=== PATIENT | female | born 1995 | race Caucasian/White ===

== ENCOUNTER → 2018-11-11 | Outpatient (REF) | payer OTHER ==
[2018-11-11 15:34] LABS: INFLUENZA A AMPLIFICATION POSITIVE (NEGATIVE); INFLUENZA B AMPLIFICATION NEGATIVE (NEGATIVE)
== END ==
LOC: M LAB REF 13:48
PROVIDERS: ATTEND Physician Assistant Medical
DX: J11.1 Influenza due to unidentified influenza virus with other respiratory manifestations (principal)

== ENCOUNTER → 2019-07-23 | Outpatient (REF) | payer OTHER | LOC: M LAB REF 12:00 | PROVIDERS: ATTEND Physician Assistant Medical | DX: R50.9 Fever, unspecified (principal); R10.84 Generalized abdominal pain; R05 Cough ==

== ENCOUNTER → 2021-11-01 | Outpatient (REF) | payer OTHER | LOC: M LAB REF 14:25 | PROVIDERS: ATTEND Physician Assistant | DX: R05.9 Cough, unspecified (principal) ==

== ENCOUNTER → 2022-06-05 | Outpatient (REF) | payer OTHER | LOC: M LAB REF 16:07 | PROVIDERS: ATTEND Physician Assistant | DX: B34.9 Viral infection, unspecified (principal) ==

== ENCOUNTER → 2022-10-07 | Outpatient (CLI) | payer OTHER ==
[2022-10-07 17:34] LABS: HEMATOCRIT 39.2 % (36.0-47.0); HEMOGLOBIN 13.1 g/dl (12.0-15.5); MEAN CORPUSCULAR HEMOGLOBIN 30.8 pg (27.0-33.0); MEAN CORPUSCULAR HGB CONC 33.4 g/dl (32.0-36.5); MEAN CORPUSCULAR VOLUME 92.2 fl (80.0-96.0); PLATELET COUNT, AUTOMATED 279 10^3/uL (150-450); RED BLOOD COUNT 4.25 10^6/uL (4.00-5.40)
[2022-10-07 18:20] LABS: HIV 1&2 SCREEN CENTAUR NEGATIVE (NEGATIVE)
[2022-10-07 19:51] LABS: GC DNA AMPLIFICATION NEGATIVE (NEGATIVE)
== END ==
LOC: M PLALAB 14:27
PROVIDERS: ATTEND Advanced Practice Midwife
DX: Z34.81 Encounter for supervision of other normal pregnancy, first trimester (principal)

== ENCOUNTER → 2022-11-04 | Outpatient (CLI) | payer OTHER | LOC: M PLALAB 09:56 | PROVIDERS: ATTEND Specialist | DX: Z34.80 Encounter for supervision of other normal pregnancy, unspecified trimester (principal) ==

== ENCOUNTER → 2023-01-07 | Outpatient (CLI) | payer OTHER | LOC: M WHC 12:59 | PROVIDERS: ATTEND Obstetrics & Gynecology | DX: Z34.92 Encounter for supervision of normal pregnancy, unspecified, second trimester (principal) ==

== ENCOUNTER → 2023-03-04 | Outpatient (CLI) | payer OTHER ==
[2023-03-04 13:38] LABS: HEMATOCRIT 34.9 % (36.0-47.0); HEMOGLOBIN 11.4 g/dl (12.0-15.5); MEAN CORPUSCULAR HEMOGLOBIN 31.1 pg (27.0-33.0); MEAN CORPUSCULAR HGB CONC 32.7 g/dl (32.0-36.5); MEAN CORPUSCULAR VOLUME 95.4 fl (80.0-96.0); PLATELET COUNT, AUTOMATED 200 10^3/uL (150-450); RED BLOOD COUNT 3.66 10^6/uL (4.00-5.40); WHITE BLOOD COUNT 23.1 10^3/uL (4.0-10.0)
[2023-03-04 15:01] LABS: GC DNA AMPLIFICATION NEGATIVE (NEGATIVE)
== END ==
LOC: M PLALAB 09:37
PROVIDERS: ATTEND Obstetrics & Gynecology
DX: Z34.93 Encounter for supervision of normal pregnancy, unspecified, third trimester (principal)

== ENCOUNTER → 2023-04-29 | Outpatient (REF) | payer OTHER | LOC: M SFHCWAGY 13:09 | PROVIDERS: ATTEND Advanced Practice Midwife | DX: Z34.83 Encounter for supervision of other normal pregnancy, third trimester (principal) ==

== ENCOUNTER 2023-05-15 21:13 | Inpatient (IN) | payer OTHER ==
[~2023-05-15] VITALS: Ht 154.9 cm; Wt 84.3 kg
[2023-05-15] VITALS (18 sets, daily range): BP systolic 120–202; BP diastolic 63–107
[2023-05-15] MEDS ORDERED: OMEP10CASR PO (21:25)
[2023-05-15] MEDS ORDERED: LACTATED RINGER'S 1000 ML IV STA (21:37)
[2023-05-15] MEDS ORDERED: PENICILLIN G POTASSIUM 5 MU IV 5 MU in D5W MINI-BAG PLUS 100 ML IV STA (21:37)
[2023-05-15] MEDS ORDERED: CARBOPROST TROMETHAMINE 250 MCG/ML AMP IM PRN (21:40)
[2023-05-15] MEDS ORDERED: TRANEXAMIC ACID INJection 1,000 MG in NS 100 ML IV PRN (21:40)
[2023-05-15] MEDS ORDERED: LR 1,000 ML IV SCH (21:40)
[2023-05-15] MEDS ORDERED: OXYTOCIN DRIP 30 UNITS in IV 1 EA IV PRN ×4 (21:40)
[2023-05-15] MEDS ORDERED: HOME MED LIST COMPLETE! XX SCH (21:40)
[2023-05-15] MEDS ORDERED: METHYLERGONOVINE MALEATE 0.2MG/ML 1ML VIAL IM PRN (21:40)
[2023-05-15 22:20] LABS: HEMATOCRIT 35.2 % (36.0-47.0); HEMOGLOBIN 11.6 g/dl (12.0-15.5); MEAN CORPUSCULAR HEMOGLOBIN 29.4 pg (27.0-33.0); MEAN CORPUSCULAR VOLUME 89.3 fl (80.0-96.0); PLATELET COUNT, AUTOMATED 131 10^3/uL (150-450); RED BLOOD COUNT 3.94 10^6/uL (4.00-5.40); WHITE BLOOD COUNT 15.7 10^3/uL (4.0-10.0)
[2023-05-15] MEDS ORDERED: ePHEDrine SULFATE 25 MG/5 ML(5MG/ML) SYRINGE IVP PRN (22:35)
[2023-05-15] MEDS ORDERED: diphenhydrAMINE 50MG/ML VIAL IV PRN (22:35)
[2023-05-15] MEDS ORDERED: EPIDURAL/PCA KEYS XX PRN (22:35)
[2023-05-15] MEDS ORDERED: FENTANYL/ROPIVACAINE/NACL BAG 100 ML EPIDURAL SCH (22:35)
[2023-05-15] MEDS ORDERED: LR 500 ML IV PRN (22:35)
[2023-05-15] MEDS ORDERED: NALOXONE INJ 0.4MG/1ML VIAL IV PRN (22:35)
[2023-05-15] MEDS ORDERED: ONDANSETRON 4MG 2ML VIAL IV PRN (22:35)
[2023-05-16] VITALS (36 sets, daily range): BP systolic 127–209; BP diastolic 66–114; O2SAT 95–98
[2023-05-16] MEDS ORDERED: OMEPRAZOLE 20MG CAP PO SCH (01:30)
[2023-05-16] MEDS ORDERED: PEN G POT 3,000,000 UNIT/50 ML 3,000,000 UNIT in IV 1 EA IV SCH (02:00)
[2023-05-16] MEDS ORDERED: DIBUCAINE 1% OINTMENT 30GM TOP PRN (03:45)
[2023-05-16] MEDS ORDERED: METHYLERGONOVINE MALEATE 0.2 MG TAB PO PRN (03:45)
[2023-05-16] MEDS ORDERED: DOCUSATE SODIUM 100MG CAPSULE PO PRN (03:45)
[2023-05-16] MEDS ORDERED: ACETAMINOPHEN 500 MG TAB PO PRN (03:45)
[2023-05-16] MEDS ORDERED: RHOGAM 300MCG (1500IU) INJ IM SCH (03:45)
[2023-05-16] MEDS: NIFEdipine 30MG XL TAB PO SCH (06:47)
[2023-05-16 07:19] LABS: HEMATOCRIT 31.6 % (36.0-47.0); HEMOGLOBIN 10.4 g/dl (12.0-15.5); MEAN CORPUSCULAR HEMOGLOBIN 29.9 pg (27.0-33.0); MEAN CORPUSCULAR HGB CONC 32.9 g/dl (32.0-36.5); MEAN CORPUSCULAR VOLUME 90.8 fl (80.0-96.0); PLATELET COUNT, AUTOMATED 114 10^3/uL (150-450); RED BLOOD COUNT 3.48 10^6/uL (4.00-5.40); WHITE BLOOD COUNT 24.3 10^3/uL (4.0-10.0)
[2023-05-16 07:42] LABS: LDH LACTATE DEHYDROGENASE 309 U/L (120-246)
[2023-05-16 07:43] LABS: ALT/SGPT 23 U/L (7.0-40); AST/SGOT 33 U/L (<34); BILIRUBIN,TOTAL 0.2 MG/DL (0.3-1.2); CREATININE FOR GFR 0.73 MG/DL (0.55-1.30); GLOMERULAR FILTRATION RATE > 60.0 (>60)
[2023-05-16] MEDS: PRENATAL VITAMINS CHEWABLE TABLET PO SCH (08:34)
[2023-05-16] MEDS ORDERED: LABETALOL 100MG/20ML VIAL IV STA ×2 (11:43→12:25)
[2023-05-16] MEDS ORDERED: LABETALOL 200 MG TAB PO STA (15:11)
[2023-05-16] MEDS: LABETALOL 200 MG TAB PO SCH (20:58)
[2023-05-17] VITALS (10 sets, daily range): BP systolic 141–178; BP diastolic 72–110; O2SAT 96–98
[2023-05-17] MEDS: IBUPROFEN 600MG TAB PO PRN ×3 (07:29→22:36)
[2023-05-17] MEDS: LABETALOL 200 MG TAB PO SCH (09:27)
[2023-05-17] MEDS: PRENATAL VITAMINS CHEWABLE TABLET PO SCH (09:28)
[2023-05-17] MEDS: NIFEdipine 30MG XL TAB PO SCH (09:28)
[2023-05-17] MEDS ORDERED: NIFEdipine 10 MG CAP PO ONE ×3 (14:30→21:00)
[2023-05-18] VITALS (7 sets, daily range): BP systolic 138–168; BP diastolic 75–104; O2SAT 96–98
[2023-05-18] MEDS: PRENATAL VITAMINS CHEWABLE TABLET PO SCH (08:11)
[2023-05-18] MEDS ORDERED: NIFEdipine 30MG XL TAB PO SCH (09:00)
[2023-05-18] MEDS ORDERED: MEASLES,MUMPS,RUBELLA VACCINE INJ (MMR-II) SC.IMMUN ONE (09:00)
[2023-05-18] MEDS: LABETALOL 100MG TAB PO SCH ×2 (09:01→15:46)
[2023-05-18] MEDS ORDERED: IBUP-1022 PO (14:26)
[2023-05-18] MEDS ORDERED: ACET-683 PO (14:26)
[2023-05-18] MEDS ORDERED: NIFE1TAB52 PO (14:26)
[2023-05-18] MEDS ORDERED: LABE100T6 PO (14:26)
== END 2023-05-18 16:05 | disposition home or self-care (01) | DRG 560 ==
LOC: M LDO 21:13 → M LDI 21:36 → M OBS 05-16 05:45
PROVIDERS: ADMIT Obstetrics & Gynecology; ATTEND Obstetrics & Gynecology
PROC: 10E0XZZ Delivery of Products of Conception, External Approach (ICD-10-PCS; principal; 2023-05-16)
PROC: 10907ZC Drainage of Amniotic Fluid, Therapeutic from Products of Conception, Via Natural or Artificial Opening (ICD-10-PCS; 2023-05-16)
DX: O13.4 Gestational [pregnancy-induced] hypertension without significant proteinuria, complicating childbirth (principal); O99.824 Streptococcus B carrier state complicating childbirth; Z37.0 Single live birth; Z3A.38 38 weeks gestation of pregnancy; O70.0 First degree perineal laceration during delivery

== ENCOUNTER → 2024-04-28 | Outpatient (REF) | payer BC ==
[~2024-04-28] MED LIST: ACET-683 PO; IBUP-1022 PO; LABE100T6 PO; NIFE1TAB52 PO; OMEP10CASR PO
== END ==
LOC: M PLALAB 15:07
PROVIDERS: ATTEND Obstetrics & Gynecology
DX: Z01.419 Encounter for gynecological examination (general) (routine) without abnormal findings (principal)